=== PATIENT | female | born 1955 | race Caucasian/White ===

== ENCOUNTER 2022-04-26 10:44 | Day surgery (SDC) | payer MEDICARE, OTHER ==
[~2022-04-26] VITALS: Ht 154.9 cm; Wt 61.9 kg
[2022-04-26] MEDS ORDERED: CEPH500 PO (11:00)
--- NOTE | 2022-04-26 12:49 | NUR ---
04/26/22 1249 MAXINE MUELLER 5MLS OF INJECTABLE NS MIXED WITH 5MLS OF LIDOCAINE 2% WITH EPI 1:100,000 TO CREATE A LOCAL SOLUTION OF LIDOCAINE 1% WITH EPI 1:200,000.
== END 2022-04-26 14:45 | disposition home or self-care (01) ==
LOC: ORSCSDS 10:44
PROVIDERS: Otolaryngology
PROC: 09BM0ZZ Excision of Nasal Septum, Open Approach (ICD-10-PCS; principal; 2022-04-26 11:45)
PROC: 09SL0ZZ Reposition Nasal Turbinate, Open Approach (ICD-10-PCS; principal; 2022-04-26 11:45)
DX: J34.2 Deviated nasal septum (principal); J34.3 Hypertrophy of nasal turbinates; R42 Dizziness and giddiness; M19.90 Unspecified osteoarthritis, unspecified site; Z79.899 Other long term (current) drug therapy
CPT/HCPCS: J0171; J1100; J2405; J2704; J3010; J7120

== ENCOUNTER 2025-04-10 10:05 | Day surgery (SDC) | payer MEDICARE ==
[~2025-04-10] VITALS: Ht 154.9 cm; Wt 59.3 kg
[~2025-04-10 10:05] MED LIST: Bupivacaine 0.5% W/EPI 1:200000 SDV 30 ML Vial ONE; CEPH500 PO; CeFAZolin Sodium 2,000 MG VIAL ONE; Dexamethasone Sod Phos 10 MG/ML 1ML VIAL ONE; ERGO50000 PO; FentaNYL Citrate 50 MCG/ML 2 ML Injection ONE; Ondansetron HCl 2 MG / ML 2ML Vial ONE
[2025-04-10] MEDS ORDERED: ZOLEDRONIC (10:20)
[2025-04-10] MEDS ORDERED: VITAMIN D32000 UNI2 PO (10:22)
--- NOTE | 2025-04-10 10:58 | NUR ---
04/10/25 1058 Letitia Moore SCOPALIMINE PATCH APPLIED TO PT BEHIND LEFT EAR IN PREOP BY ROBIN LINK.
[2025-04-10] MEDS ORDERED: Rocuronium Bromide 10 MG/ML 5ML Injection IV ONE (11:33)
[2025-04-10] MEDS ORDERED: Sugammadex Sodium 200 MG/2ML SDV (100 MG/ML) ONE (11:34)
--- NOTE | 2025-04-10 12:02 | NUR ---
04/10/25 1202 Andra Soto REPORT RECEIVED FROM ROBIN KHALIL
[2025-04-10] MEDS ORDERED: Ondansetron HCl 2 MG / ML 2ML Vial ONE (12:06)
[2025-04-10 12:13] VITALS: BP 119/71
== END 2025-04-10 13:12 | disposition home or self-care (01) ==
LOC: ORSCSDS 10:05
PROVIDERS: Podiatrist Foot & Ankle Surgery
PROC: 0JBR0ZZ Excision of Left Foot Subcutaneous Tissue and Fascia, Open Approach (ICD-10-PCS; principal; 2025-04-10 12:00)
PROC: 0JBQ0ZZ Excision of Right Foot Subcutaneous Tissue and Fascia, Open Approach (ICD-10-PCS; principal; 2025-04-10 12:00)
DX: D17.9 Benign lipomatous neoplasm, unspecified (principal); M25.572 Pain in left ankle and joints of left foot; M25.571 Pain in right ankle and joints of right foot
CPT/HCPCS: A6253; A9270; J0690; J1100; J2405; J2704; J3010; J7120